=== PATIENT | male | born 1965 | race African-American/Black ===

== ENCOUNTER 2017-01-04 07:20 | Emergency (ER) | payer BC ==
[~2017-01-04] VITALS: Ht 172.7 cm; Wt 125.0 kg
[~2017-01-04 07:20] MED LIST: CLARITIN-D 10 M1 T24 PO; FLONASE NASAL S16 GM NS; NORCO 325 MG-51 TAB PO; ZOCOR 10MG10 MG PO; ZOFRAN 4MG T4 MG/TAB PO
[2017-01-04 07:25] VITALS: BP 168/90; TEMP 98.4
[2017-01-04] MEDS ORDERED: ZOCOR 20MG20 MG PO (07:27)
[2017-01-04] MEDS ORDERED: SINGULAIR 110 MG/TAB PO (07:28)
[2017-01-04] MEDS ORDERED: CLARITIN-D 10 M1 T24 PO (07:28)
[2017-01-04 08:25] LABS: HEMATOCRIT 51.2 % (42.0-52.0); HEMOGLOBIN 16.3 g/dl (13.5-18.0); MEAN CELL VOLUME 87 fl (80.0-100.0); MEAN CORPUSCULAR HEMOGLOBIN 28 pg (27.0-31.0); MEAN CORPUSCULAR HGB CONC 32 g/dl (33.0-37.0); MEAN PLATELET VOLUME 11.1 fl (7.4-10.4); PLATELET COUNT 200 K/mm3 (130-400); RED BLOOD COUNT 5.88 M/mm3 (4.20-5.60)
[2017-01-04 08:26] LABS: ADD PATHOLOGY DIFF REVIEW NO
[2017-01-04 08:42] LABS: C-REACTIVE PROTEIN 1.7 mg/dL (0.0-0.9); CALCIUM 10.2 mg/dL (8.4-10.2); CREATININE, serum 0.97 mg/dL (0.66-1.25); POTASSIUM 4.1 mmol/L (3.4-5.0); URIC ACID 7.6 mg/dL (3.5-8.5)
[2017-01-04 08:53] LABS: ERYTHROCYTE SEDIMENTATION RATE 12 mm/hr (0-30)
[2017-01-04] MEDS ORDERED: DOXYCYCLINE 10100 MG PO (09:10)
[2017-01-04 09:20] VITALS: PULSE 90
[2017-01-04 09:20] LABS: BASOPHIL 1 % (0-2); EOSINOPHIL 2 % (0-4); LYMPHOCYTE 42 % (20.0-51.0); NEUTROPHILS 45 % (42.0-75.2); PLATELET ESTIMATE NORMAL (NORMAL); TOTAL CELLS COUNTED 100
== END 2017-01-04 09:21 | disposition home or self-care (01) ==
LOC: COL.ER 07:20
PROVIDERS: Nurse Practitioner
DX: M79.89 Other specified soft tissue disorders (principal); E78.00 Pure hypercholesterolemia, unspecified; Z87.891 Personal history of nicotine dependence; Z90.49 Acquired absence of other specified parts of digestive tract

== ENCOUNTER → 2017-09-17 | Outpatient (CLI) | payer BC ==
[~2017-09-17] VITALS: Ht 172.7 cm; Wt 131.8 kg
[~2017-09-17] MED LIST changes: +DOXYCYCLINE 10100 MG PO; +DYMISTA1 SPR NS; +SINGULAIR 110 MG/TAB PO; +ZESTRIL 5MG5 MG PO; +ZOCOR 20MG20 MG PO
[2017-09-17 14:28] VITALS: BP 140/100; PULSE 84
== END ==
LOC: LIGHT 08-15 11:06
DX: E88.81 Metabolic syndrome and other insulin resistance (principal); E78.5 Hyperlipidemia, unspecified; E66.01 Morbid (severe) obesity due to excess calories; Z71.3 Dietary counseling and surveillance; Z68.41 Body mass index [BMI] 40.0-44.9, adult
CPT/HCPCS: G0463

== ENCOUNTER → 2017-10-04 | Outpatient (CLI) | payer BC | LOC: LIGHT 15:43 | DX: E78.5 Hyperlipidemia, unspecified (principal); E66.01 Morbid (severe) obesity due to excess calories; Z68.41 Body mass index [BMI] 40.0-44.9, adult; Z71.3 Dietary counseling and surveillance ==

== ENCOUNTER → 2018-06-05 | Outpatient (CLI) | payer BC ==
[~2018-06-05] MED LIST changes: +CHERATUSSIN AC120 ML PO; +GLUCOPHAGE500 MG/TAB PO; +TESSALON P100 MG/CAP PO
== END ==
LOC: COL.RAD 08:20
DX: R10.12 Left upper quadrant pain (principal); R07.81 Pleurodynia

== ENCOUNTER → 2018-06-19 | Outpatient (CLI) | payer BC | LOC: SUN.DIA 13:20 | DX: E11.9 Type 2 diabetes mellitus without complications (principal); E78.5 Hyperlipidemia, unspecified; I10 Essential (primary) hypertension; E66.9 Obesity, unspecified | CPT/HCPCS: G0108 ==

== ENCOUNTER 2019-04-07 08:03 | Emergency (ER) | payer BC ==
[~2019-04-07] VITALS: Ht 170.2 cm; Wt 122.0 kg
[2019-04-07] MEDS ORDERED: TAMIFLU 75MG75 MG PO (09:06)
[2019-04-07 09:35] VITALS: BP 134/88; PULSE 109; TEMP 98.9
== END 2019-04-07 09:35 | disposition home or self-care (01) ==
LOC: COL.ER 08:03
DX: J10.1 Influenza due to other identified influenza virus with other respiratory manifestations (principal); E11.9 Type 2 diabetes mellitus without complications; I10 Essential (primary) hypertension; Z79.84 Long term (current) use of oral hypoglycemic drugs; Z79.51 Long term (current) use of inhaled steroids

== ENCOUNTER 2019-07-12 06:36 | Emergency (ER) | payer SELFPAY ==
[~2019-07-12] VITALS: Ht 170.2 cm; Wt 125.0 kg
[~2019-07-12 06:36] MED LIST changes: +TAMIFLU 75MG75 MG PO
[2019-07-12 06:40] VITALS: TEMP 97.8
[2019-07-12] MEDS ORDERED: PREDNISONE10 MG PO (07:44)
[2019-07-12 07:54] VITALS: BP 144/95; PULSE 82
== END 2019-07-12 07:59 | disposition home or self-care (01) ==
LOC: COL.ER 06:36
DX: M10.9 Gout, unspecified (principal); E11.9 Type 2 diabetes mellitus without complications; I10 Essential (primary) hypertension; E78.00 Pure hypercholesterolemia, unspecified; Z79.84 Long term (current) use of oral hypoglycemic drugs
CPT/HCPCS: J7512